=== PATIENT | female | born 1975 | race Caucasian/White ===

== ENCOUNTER 2016-10-04 22:15 | Observation (INO) | payer OTHER ==
[~2016-10-04] VITALS: Ht 157.5 cm; Wt 55.0 kg
[~2016-10-04 22:15] MED LIST: ASPI81TA11 PO; FERR325T PO; LEVO50TA4 PO; NITR50VP; REST30CA PO; XANA1TAB2 PO
[2016-10-04 22:19] VITALS: BP 106/63; PULSE 93; RESP 16; TEMP 98.7; O2SAT 96
[2016-10-04] MEDS ORDERED: ZOFR4TAB PO (22:38)
[2016-10-05] MEDS ORDERED: ONDANSETRON HCL 4 MG/2 ML VIAL IV PUSH ONE
[2016-10-05 00:13] LABS: AUTOMATED NEUTROPHIL # 5.4 TH/MM3 (1.8-7.7); BASOPHIL % 0.6 % (0.0-2.0); EOSINOPHIL # 0.1 TH/MM3 (0-0.4); EOSINOPHIL % 1.3 % (0.0-4.0); HEMATOCRIT 30.1 % (35.0-46.0); HEMO FLAGS DIFF FINAL; LYMPH % 21.2 % (9.0-44.0); LYMPHOCYTE # 1.7 TH/MM3 (1.0-4.8); MEAN CELL VOLUME 82.5 FL (80.0-100.0); MEAN CORPUSCULAR HEMOGLOBIN 28.8 PG (27.0-34.0); MEAN CORPUSCULAR HGB CONC 34.8 % (32.0-36.0); MONO % 10.7 % (0.0-8.0); NEUT % 66.2 % (16.0-70.0); PLATELET COUNT 334 TH/MM3 (150-450); RED BLOOD COUNT 3.65 MIL/MM3 (4.00-5.30); RED CELL DISTRIBUTION WIDTH 16.6 % (11.6-17.2); WHITE BLOOD COUNT 8.1 TH/MM3 (4.0-11.0)
[2016-10-05 00:18] LABS: APTT (PATIENT) 33.1 SEC (24.3-30.1); PROTHROMBIN TIME - PATIENT 10.7 SEC (9.8-11.6)
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
[2016-10-05 00:26] LABS: ALT (GPT) 17 U/L (10-53); ANION GAP 8 MEQ/L (5-15); AST (GOT) 9 U/L (15-37); BLOOD UREA NITROGEN 15 MG/DL (7-18); CHLORIDE 104 MEQ/L (98-107); GLOMERULAR FILTRATION RATE 111 ML/MIN (>89); POTASSIUM 3.9 MEQ/L (3.5-5.1); SODIUM (NA) 142 MEQ/L (136-145)
--- NOTE | 2016-10-05 00:29 | RADRPT ---
EXAM DATE/TIME: 10/05/2016 00:08 [facility] COMPARISON: CHEST SINGLE AP, April 11, 2016, 13:38. INDICATIONS : Chest pain. MEDICAL HISTORY : Lupus. Hypercholesterolemia. Gastroparesis. Osteoporosis. Thyroid disease. SURGICAL HISTORY : Port placement. ENCOUNTER: Initial ACUITY: 1 day PAIN SCORE: 7/10 LOCATION: Bilateral chest FINDINGS: A single view of the chest demonstrates the lungs to be symmetrically aerated without evidence of mas s, infiltrate or effusion. The cardiomediastinal contours are unremarkable. Osseous structures are intact. There is a left-sided Vovoda-g-Tqtj in place. No significant change compared to the prior tracie dy. CONCLUSION: No acute disease. No significant change has occurred. Daniel Roberts MD on October 05, 2016 at 0:27 Board Certified Radiologist. This report was verified electronically.
[2016-10-05 00:30] LABS: ALKALINE PHOSPHATASE 107 U/L (45-117); TOTAL BILIRUBIN ADULT 0.1 MG/DL (0.2-1.0)
[2016-10-05 00:34] LABS: CREATINE KINASE 28 U/L (26-192)
[2016-10-05] MEDS ORDERED: MORPHINE SULFATE 4 MG/ML INJ IV PUSH ONE ×2 (01:00)
[2016-10-05] MEDS ORDERED: IOHEXOL 350 MG/ML 10 ML VIAL (for RAD DIAG) IV ONE (01:57)
--- NOTE | 2016-10-05 02:06 | RADRPT ---
EXAM DATE/TIME: 10/05/2016 01:48 [facility] COMPARISON: CT PULMONARY ANGIOGRAM, September 12, 2014, 14:48. INDICATIONS : Right sided chest pain. IV CONTRAST: 60 cc Omnipaque 350 (iohexol) IV RADIATION DOSE: 22.73 CTDIvol (mGy) MEDICAL HISTORY : Cardiovascular disease. Lupus. SURGICAL HISTORY : Cholecystectomy. Appendectomy.Hysterectomy. ENCOUNTER: Initial ACUITY: 1 day PAIN SCALE: 9/10 LOCATION: Right chest TECHNIQUE: Volumetric scanning of the chest was performed using a pulmonary embolism protocol MIP images were re constructed. Using automated exposure control and adjustment of the mA and/or kV according to patien t size, radiation dose was kept as low as reasonably achievable to obtain optimal diagnostic quality images. FINDINGS: PULMONARY ARTERIES: No filling defects are seen in the pulmonary arteries through the segmental level. LUNGS: There is no consolidation or pneumothorax . No concerning pulmonary nodule is visualized. PLEURAE: There is no pleural thickening or pleural effusion. MEDIASTINUM: There is good visualization of the great vessels of the middle mediastinum. No evidence of mediastin al or hilar adenopathy/mass. MUSCULOSKELETAL: Within normal limits for patient age. MISCELLANEOUS: The visualized upper abdominal organs demonstrate no acute abnormality. There is an Mhndwn-s-Spbb ove rlying the left chest. No significant change compared to the prior study. CONCLUSION: 1. No evidence of PE. 2. No acute pulmonary infiltrates. 3. Stable examination. Daniel Roberts MD on October 05, 2016 at 2:02 Board Certified Radiologist. This report was verified electronically.
[2016-10-05] MEDS ORDERED: SODIUM CHLORIDE 0.9% FLUSH 5 ML FLUSH IVF PRN (03:15)
[2016-10-05] MEDS ORDERED: ACETAMINOPHEN 500 MG CPLT PO PRN (03:15)
--- NOTE | 2016-10-05 03:16 | PD ---
Data Data Last Documented VS Vital Signs Date Time Temp Pulse Resp B/P Pulse Ox O2 Delivery O2 Flow Rate FiO2 10/04/16 22:19 98.7 93 16 106/63 96 Orders Complete Blood Count With Diff (10/04/16 23:44) Comprehensive Metabolic Panel (10/04/16 23:44) Creatine Kinase (Cpk) (10/04/16 23:44) Troponin I (10/04/16 23:44) B-Type Natriuretic Peptide (10/04/16 23:44) Prothrombin Time / Inr (Pt) (10/04/16 23:44) Act Partial Throm Time (Ptt) (10/04/16 23:44) D-Dimer (10/04/16 23:44) Chest, Single Ap (10/04/16 23:44) Iv Access Insert/Monitor (10/04/16 23:44) Ecg Monitoring (10/04/16 23:44) Oximetry (10/04/16 23:44) Morphine Inj (Morphine Inj) (10/05/16 00:00) Ondansetron Inj (Zofran Inj) (10/05/16 00:00) Ct Pulmonary Angiogram (10/05/16 ) Morphine Inj (Morphine Inj) (10/05/16 01:00) Iohexol 350 Inj (Omnipaque 350 Inj) (10/05/16 01:57) Place In Observation (10/05/16 03:11) Activity Bed Rest With Brp (10/05/16 03:11) Vital Signs (Adult) Q4H (10/05/16 03:11) Cardiac Rhythm .As Directed (10/05/16 03:11) ^ Notify Dr: Other .PRN (10/05/16 03:11) ^ Notify Dr. Parameters (10/05/16 03:11) Resp Oxygen Nasal Cannula (10/05/16 ) Ckmb (Isoenzyme) Profile (10/05/16 03:11) Ckmb (Isoenzyme) Profile (10/05/16 06:11) Troponin I (10/05/16 03:11) Troponin I (10/05/16 06:11) Electrocardiogram (10/05/16 03:11) Electrocardiogram (10/05/16 06:11) ^ Obtain (10/05/16 03:11) Sodium Chloride 0.9% Flush (Ns Flush) (10/05/16 03:15) Sodium Chloride 0.9% Flush (Ns Flush) (10/05/16 09:00) Acetaminophen (Tylenol) (10/05/16 03:15) Senior Infrastructure Architect / Telemetry (10/05/16 03:11) Admit Order (Ed Use Only) (10/05/16 03:11) Labs Laboratory Tests Test 10/04/16 22:35 White Blood Count 8.1 TH/MM3 Red Blood Count 3.65 MIL/MM3 Hemoglobin 10.5 GM/DL Hematocrit 30.1 % Mean Corpuscular Volume 82.5 FL Mean Corpuscular Hemoglobin 28.8 PG Mean Corpuscular Hemoglobin 34.8 % Concent Red Cell Distribution Width 16.6 % Platelet Count 334 TH/MM3 Mean Platelet Volume 7.5 FL Neutrophils (%) (Auto) 66.2 % Lymphocytes (%) (Auto) 21.2 % Monocytes (%) (Auto) 10.7 % Eosinophils (%) (Auto) 1.3 % Basophils (%) (Auto) 0.6 % Neutrophils # (Auto) 5.4 TH/MM3 Lymphocytes # (Auto) 1.7 TH/MM3 Monocytes # (Auto) 0.9 TH/MM3 Eosinophils # (Auto) 0.1 TH/MM3 Basophils # (Auto) 0.0 TH/MM3 CBC Comment DIFF FINAL Differential Comment Prothrombin Time 10.7 SEC Prothromb Time International 1.0 RATIO Ratio Activated Partial 33.1 SEC Thromboplast Time D-Dimer Quantitative (PE/DVT) 0.76 MG/L FEU Sodium Level 142 MEQ/L Potassium Level 3.9 MEQ/L Chloride Level 104 MEQ/L Carbon Dioxide Level 30.0 MEQ/L Anion Gap 8 MEQ/L Blood Urea Nitrogen 15 MG/DL Creatinine 0.60 MG/DL Estimat Glomerular Filtration 111 ML/MIN Rate Random Glucose 97 MG/DL Calcium Level 9.1 MG/DL Total Bilirubin 0.1 MG/DL Aspartate Amino Transf 9 U/L (AST/SGOT) Alanine Aminotransferase 17 U/L (ALT/SGPT) Alkaline Phosphatase 107 U/L Total Creatine Kinase 28 U/L Troponin I LESS THAN 0.02 NG/ML B-Type Natriuretic Peptide LESS THAN 2 PG/ML Total Protein 7.0 GM/DL Albumin 3.1 GM/DL [facility] Medical Record Reviewed: Yes Supervised Visit with JESSICA: No Interpretation(s) Last Impressions CT Angiography 10/05/16 0000 Signed Impressions: Service Date/Time: Wednesday, October 05, 2016 01:48 - CONCLUSION: 1. No evidence of PE. 2. No acute pulmonary infiltrates. 3. Stable examination. Daniel Roberts MD Chest X-Ray 10/04/16 2344 Signed Impressions: Service Date/Time: Wednesday, October 05, 2016 00:08 - CONCLUSION: No acute disease. No significant change has occurred. Daniel Roberts MD Narrative Course The patient's case was checked out to me by Dr. Gomes. He reported that the patient was experiencing chest pain. The patient's initial workup was unremarkable except for a d-dimer that was elevated. He ordered a CTA. At the conclusion of his shift the CTA continued be pending. Because of this, he requested that I review the patient's CTA results and if it was negative for PE admit the patient to the chest pain center for rule out serial cardiac enzyme protocol. CTA was resulted as showing no evidence of pulmonary embolism. The patients results were discussed with the patient, including the plan of care. I explained that further testing and/ or monitoring is indicated based on the patients history, examination, and/ or laboratory findings. Therefore, I recommended admission for additional evaluation. The patient expressed understanding and was agreeable with this plan. The patient was admitted to the hospital in stable condition and sent to a bed under the care of the chest pain center. Diagnosis Primary Impression: Chest pain, rule out acute myocardial infarction Admitting Information Admitting Physician Requests: Observation Winsome Ramirez MD Oct 05, 2016 03:16
[2016-10-05 06:20] LABS: CREATINE KINASE 22 U/L (26-192)
[2016-10-05 08:30] VITALS: BP 112/72; PULSE 79; RESP 16; O2SAT 99
[2016-10-05] MEDS ORDERED: SODIUM CHLORIDE 0.9% FLUSH 5 ML FLUSH IVF SCH (09:00)
--- NOTE | 2016-10-05 10:42 | EKG ---
Date Performed: 10/05/2016 Time Performed: 04:34:58 PTAGE: 41 years EKG: Sinus rhythm Nonspecific ST changes Since PREVIOUS TRACING , no significant change noted PREVIOUS TRACIN08/23/2016 11.09 DOCTOR: Nya Salgado Interpretating Date/Time 10/05/2016 10:41:30
[2016-10-05] MEDS ORDERED: KETOROLAC TROMETHAMINE 30 MG/ML (IVP) VIAL IV PUSH ONE (10:45)
--- NOTE | 2016-10-05 10:45 | EKG ---
Date Performed: 10/04/2016 Time Performed: 22:43:56 PTAGE: 41 years EKG: Sinus rhythm WITH SINUS ARRHYTHMIA NORMAL ECG Since PREVIOUS TRACING , no significant change noted DOCTOR: Nya Salgado Interpretating Date/Time 10/05/2016 10:44:18
--- NOTE | 2016-10-05 13:12 | HHI.DCPOC ---
Discharge Care Plan Diagnosis: (1) Atypical chest pain Goals to Promote Your Health * To prevent worsening of your condition and complications * To maintain your health at the optimal level Directions to Meet Your Goals Take your medications as prescribed Follow your dietary instruction Follow activity as directed Keep your appointments as scheduled Take your immunizations and boosters as scheduled If your symptoms worsen call your PCP, if no PCP go to Urgent Care Center or Emergency Room Smoking is Dangerous to Your Health. Avoid second hand smoke Call the 24-hour hour crisis hotline for domestic abuse at Ángela Tatum Oct 05, 2016 13:12
--- NOTE | 2016-10-05 16:15 | MH ---
cc: MATEHW NEAL MD DATE OF ADMISSION: 10/05/2016 DATE OF : 1975 CHIEF COMPLAINT Chest pain. HISTORY OF PRESENT ILLNESS This is a 41-year-old patient who presented to the emergency room for right-sided chest pain. The patient is currently at [facility] for a recent stroke she had in August. States she was walking to the vending machine when she developed right-sided chest pain that was described as sharp stabbing pain that radiated to her right shoulder, her right neck and to her right back. Duration was a couple of hours. No known associated precipitating factors or relieving factors. She had some mild shortness of breath. PAST MEDICAL HISTORY 1. CVA. 2. Lupus. 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 4. Anxiety. 5. Migraines. 6. Dyslipidemia. 7. Gastroparesis with a gastric pacemaker. SOCIAL HISTORY She currently is residing at [facility]. She has left-sided weakness from a stroke she had 08/27, and at that time she received TPA. She denies any alcohol, illegal drug use or tobacco use. Does have dyslipidemia. No known diabetes or hypertension. PAST CARDIAC TESTING After reviewing the EMR showing that she had a chemical stress test 11/06/2015 which was unremarkable and also on 04/05/2016 another chemical stress test was unremarkable with an ejection fraction of 67%. She had a cardiac catheterization on 02/25/[address] Humphreys with a conclusion: 1. Insignificant coronary artery disease. 2. Preserved left ventricular systolic wall motion. 3. The patient can be treated medically and her chest pain is not related to cardiac ischemia. ALLERGIES She has multiple allergies includin. ASPIRIN. 2. AUGMENTIN. 3. BACTRIM. 4. BARIUM SULFATE. 5. BENTYL. 6. CARAFATE. 7. CIPRO. 8. DIOXYLINE. 9. DARVOCET. 10. DOXYCYCLINE. 11. ERYTHROMYCIN. 12. IMITREX. 13. MRI PRECAUTIONS. 14. MILK OF MAGNESIA. 15. REGLAN. MEDICATIONS Current medications include: 1. Zofran 4 mg p.o. q.6h. p.r.n. 2. Xanax 1 mg p.o. q.8h. p.r.n. 3. Restoril 30 mg q.h.s. p.r.n. 4. Nitroglycerin sublingual tablet p.r.n. for chest pain. 5. Aspirin 81 mg daily. 6. Levothyroxine 50 mcg daily. REVIEW OF SYSTEMS GENERAL: She has not had any recent fevers, chills, night sweats, change in appetite. Does have left-sided weakness. She is receiving rehab at [facility]. HEENT: No headache or visual changes. Has some dysphagia. Takes crushed pills. However, denies being on aspiration precautions. CARDIOVASCULAR: As stated above. Continues to have some right-sided chest discomfort that radiates to her back. RESPIRATORY: No shortness of breath, cough or wheeze. GASTROINTESTINAL: No bowel changes, diarrhea, constipation, nausea or vomiting. GENITOURINARY: No dysuria. EXTREMITIES: No lower leg edema. MUSCULOSKELETAL: Has some left-sided weakness from her stroke, states this is improving. NEUROLOGIC: She is able to walk, uses a cane. Does have some sensory deficits on the left side and some weakness. No loss of consciousness or syncopal episodes. PSYCHIATRIC: No anxiety or depression. SKIN: No concerning lesions or rashes. PHYSICAL EXAMINATION VITAL SIGNS: Temperature 98.7, pulse 93, respiratory rate 16, blood pressure 106/63. Pulse oximetry 96% on room air. GENERAL: An alert, well-nourished, well-developed, in no acute distress female. HEAD: Normocephalic, atraumatic. EYES: Sclera clear. Conjunctiva without injection. Pupils are equal and round. NECK: Supple. Trachea is midline. CARDIOVASCULAR: Regular rate and rhythm without murmur, rub or gallop. No JVD. S1, S2. No S3. No S4. PULMONARY: Clear lungs throughout bilaterally with no crackles, wheeze or rhonchi. She is non-labored. Symmetrical chest rise. ABDOMEN: Soft, nontender, nondistended. Positive bowel tones. BACK: No costovertebral angle tenderness. EXTREMITIES: Pulses +2 x4. Normal tone x4. No obvious deformities. NEUROLOGIC: Cranial nerves II through XII grossly intact. Motor strength is slightly weak at 4/5 for left extremities. PSYCHIATRIC: She is alert and oriented x3, appropriate to mood, insight and judgment. SKIN: Normal turgor. Normal texture. Warm and dry. LABORATORY DATA Hemoglobin 10.5, hematocrit 30.1, otherwise unremarkable. Chemistry has an albumin of 3.1, otherwise unremarkable. Three sets of cardiac enzymes are negative. Coagulation is unremarkable. D-dimer is 0.78. IMAGING DATA Chest x-ray read by radiologist as no acute disease. No significant change has occurred. CT angiogram has conclusion of: 1. No evidence of a PE. 2. No acute pulmonary infiltrates. 3. Stable examination. EKG DATA Three EKGs show a normal sinus rhythm. The second EKG showed normal sinus rhythm with nonspecific ST changes. ASSESSMENT AND PLAN 1. Chest pain: The patient has been admitted to the chest pain center. She was ruled out with three sets of EKGs and cardiac enzymes. She was seen and evaluated by Dr. Mathew Neal. The patient's vending machine attendant, Dr. Wing Humphreys, was called and notified of the patient's arrival to the emergency room with complaint of chest pain. The patient's vending machine attendant states it is appropriate to discharge her at this time and the patient can follow-up in her office as she has been thoroughly worked up in the past and it is not suspected that she has coronary artery disease. This has been discussed with the patient and she is agreeable to this plan of care. She will be discharged back to [facility]. 2. Musculoskeletal pain: The patient very well may have musculoskeletal pain, and dose of Toradol 30 mg x1 was provided. 3. Anemia. The patient is and been encouraged to continue to follow up her primary care provider for her known iron deficiency anemia. Dictated by: CAMILO Tyler Marie Downs/TR /1:55 PM /4:11 PM
--- NOTE | 2016-10-06 14:27 | EKG ---
Date Performed: 10/05/2016 Time Performed: 10:52:28 PTAGE: 41 years EKG: Sinus rhythm WITH SINUS ARRHYTHMIA NORMAL ECG PREVIOUS TRACING : 10/05/2016 04.34 Since previous tracing, no significant change noted DOCTOR: Fernie Reed Interpretating Date/Time 10/06/2016 14:26:41
== END 2016-10-05 16:31 | disposition home or self-care (01) ==
LOC: NEPA 22:15 → NEDA 10-05 03:14
PROVIDERS: ADMIT Internal Medicine Interventional Cardiology; ATTEND Internal Medicine Interventional Cardiology
DX: R07.89 Other chest pain (principal); D50.9 Iron deficiency anemia, unspecified; E78.5 Hyperlipidemia, unspecified; E03.9 Hypothyroidism, unspecified; E78.00 Pure hypercholesterolemia, unspecified; I69.354 Hemiplegia and hemiparesis following cerebral infarction affecting left non-dominant side; K31.84 Gastroparesis; M79.7 Fibromyalgia; G61.0 Guillain-Barre syndrome; G43.909 Migraine, unspecified, not intractable, without status migrainosus; M32.9 Systemic lupus erythematosus, unspecified; M19.90 Unspecified osteoarthritis, unspecified site
CPT/HCPCS: 71010; 71275; 80053; 82550; 83880; 84484; 85025; 85379; 85610; 85730; 93005; 96374; 96375; 96376; 99285; G0378; J1885; J2270; J2405; Q9967

== ENCOUNTER 2017-01-18 13:48 | Observation (INO) | payer OTHER ==
[~2017-01-18] VITALS: Ht 160 cm; Wt 53.0 kg
[~2017-01-18 13:48] MED LIST changes: -FERR325T PO; +ZOFR4TAB PO
[2017-01-18 13:50] VITALS: BP 124/76; PULSE 67; RESP 14; TEMP 98.1; O2SAT 100
[2017-01-18] MEDS ORDERED: SODIUM CHLORIDE 0.9% FLUSH 10 ML FLUSH IVF PRN (14:15)
[2017-01-18] MEDS ORDERED: SODIUM CHLOR 0.9% 1000 ML INJ 1,000 ML IV ONE (14:15)
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
[2017-01-18 14:58] LABS: BLOOD, URINE NEG (NEG); GLUCOSE,URINE NEG (NEG); KETONE, URINE NEG (NEG); NITRITE,URINE NEG (NEG); PH, URINE 5.5 (5.0-8.5); URINE COLOR YELLOW (YELLW/STRAW)
[2017-01-18 15:03] LABS: AMPHETAMINE, URINE NEG (NEG); AUTOMATED NEUTROPHIL # 2.4 TH/MM3 (1.8-7.7); BARBITURATES, URINE NEG (NEG); BASOPHIL % 1.2 % (0.0-2.0); COCAINE, URINE NEG (NEG); EOSINOPHIL # 0.1 TH/MM3 (0-0.4); EOSINOPHIL % 1.6 % (0.0-4.0); HEMATOCRIT 34.1 % (35.0-46.0); HEMO FLAGS DIFF FINAL; LYMPH % 31.3 % (9.0-44.0); LYMPHOCYTE # 1.3 TH/MM3 (1.0-4.8); MEAN CORPUSCULAR HEMOGLOBIN 29.1 PG (27.0-34.0); MEAN CORPUSCULAR HGB CONC 33.9 % (32.0-36.0); NEUT % 57.9 % (16.0-70.0); PLATELET COUNT 228 TH/MM3 (150-450); RED BLOOD COUNT 3.96 MIL/MM3 (4.00-5.30); RED CELL DISTRIBUTION WIDTH 14.6 % (11.6-17.2); WHITE BLOOD COUNT 4.2 TH/MM3 (4.0-11.0)
[2017-01-18 15:04] LABS: APTT (PATIENT) 29.9 SEC (24.3-30.1); PROTHROMBIN TIME - PATIENT 10.7 SEC (9.8-11.6)
[2017-01-18 15:11] LABS: COMMENT (UR) CATH-CULT NOT IND; CULTURE IF INDICATED CATH CULTURE NOT IND
[2017-01-18 15:15] LABS: ANION GAP 5 MEQ/L (5-15); AST (GOT) 14 U/L (15-37); BICARBONATE 28.5 MEQ/L (21.0-32.0); BLOOD UREA NITROGEN 7 MG/DL (7-18); CHLORIDE 110 MEQ/L (98-107); GLOMERULAR FILTRATION RATE 144 ML/MIN (>89); POTASSIUM 3.9 MEQ/L (3.5-5.1); SODIUM (NA) 143 MEQ/L (136-145)
[2017-01-18 15:20] LABS: ALKALINE PHOSPHATASE 74 U/L (45-117); ALT (GPT) 16 U/L (10-53); TOTAL BILIRUBIN ADULT 0.2 MG/DL (0.2-1.0)
[2017-01-18 15:28] LABS: CREATINE KINASE 45 U/L (26-192)
[2017-01-18 15:52] VITALS: BP 123/85; PULSE 64; RESP 20; O2SAT 100
--- NOTE | 2017-01-18 15:54 | RADRPT ---
EXAM DATE/TIME: 01/18/2017 15:39 [facility] COMPARISON: CT BRAIN W/O CONTRAST, August 24, 2016, 11:58. INDICATIONS : Head and neck pain, tingling extremities, prior history of stroke RADIATION DOSE: 30.69 CTDIvol (mGy) MEDICAL HISTORY : Cardiovascular disease. SURGICAL HISTORY : Hysterectomy. Appendectomy. ENCOUNTER: Initial ACUITY: 1 day PAIN SCALE: 3/10 LOCATION: cranial TECHNIQUE: Multiple contiguous axial images were obtained of the head. Using automated exposure control and adj ustment of the mA and/or kV according to patient size, radiation dose was kept as low as reasonably a chievable to obtain optimal diagnostic quality images. FINDINGS: CEREBRUM: The ventricles are normal for age. No evidence of midline shift, mass lesion, hemorrhage or acute in farction. No extra-axial fluid collections are seen. POSTERIOR FOSSA: The cerebellum and brainstem are intact. The 4th ventricle is midline. The cerebellopontine angle i s unremarkable. EXTRACRANIAL: The visualized portion of the orbits is intact. SKULL: The calvaria is intact. No evidence of skull fracture. CONCLUSION: No acute intracranial disease. Shravan Pedro MD on January 18, 2017 at 15:52 Board Certified Radiologist. This report was verified electronically.
--- NOTE | 2017-01-18 16:14 | RADRPT ---
EXAM DATE/TIME: 01/18/2017 15:39 [facility] COMPARISON: No previous studies available for comparison. INDICATIONS : Neck pain with tingling extremities RADIATION DOSE: 19.20 CTDIvol (mGy) MEDICAL HISTORY : Lupus. Cardiovascular disease SURGICAL HISTORY : Appendectomy. Hysterectomy.Pacemaker. ENCOUNTER: Initial ACUITY: 1 day PAIN SCALE: 4/10 LOCATION: neck TECHNIQUE: Volumetric scanning of the cervical spine was performed. Multiplanar reconstructions in the sagittal, coronal and oblique axial planes were performed. Using automated exposure control and adjustment o f the mA and/or kV according to patient size, radiation dose was kept as low as reasonably achievable to obtain optimal diagnostic quality images. FINDINGS: VERTEBRAE: Normal vertebral body height. ALIGNMENT: No evidence of subluxation. C2-C3: The bony spinal canal is normal in size. No evidence of disc bulge or herniation. The neural forami na are bilaterally patent. C3-C4: The bony spinal canal is normal in size. No evidence of disc bulge or herniation. The neural forami na are bilaterally patent. C4-C5: The bony spinal canal is normal in size. No evidence of disc bulge or herniation. The neural forami na are bilaterally patent. C5-C6: The bony spinal canal is normal in size. No evidence of disc bulge or herniation. The neural forami na are bilaterally patent. C6-C7: The bony spinal canal is normal in size. No evidence of disc bulge or herniation. The neural forami na are bilaterally patent. C7-T1: The bony spinal canal is normal in size. No evidence of disc bulge or herniation. The neural forami na are bilaterally patent. CONCLUSION: 1. No fracture or subluxation. 2. No disc herniation or canal stenosis. Shravan Pedro MD on January 18, 2017 at 16:11 Board Certified Radiologist. This report was verified electronically.
--- NOTE | 2017-01-18 16:50 | RADRPT ---
EXAM DATE/TIME: 01/18/2017 14:18 [facility] COMPARISON: CHEST SINGLE AP, October 05, 2016, 0:08. INDICATIONS : Weaknes and dizzy today, numbness possible CVA. MEDICAL HISTORY : Stroke. Lupus. Fibromyalgia. SURGICAL HISTORY : Appendectomy. Cholecystectomy. Hysterectomy. Infusaport. Cardiac cath. Gastric pacemaker. ENCOUNTER: Initial ACUITY: 1 day PAIN SCORE: 0/10 LOCATION: Bilateral chest FINDINGS: A single view of the chest demonstrates the lungs to be symmetrically aerated without evidence of mas s, infiltrate or effusion. The cardiomediastinal contours are unremarkable. Osseous structures are intact. Left-sided [id number] catheter are again noted. CONCLUSION: No acute disease. No significant change has occurred. Jaime Donahue MD on January 18, 2017 at 16:47 Board Certified Radiologist. This report was verified electronically.
--- NOTE | 2017-01-18 17:59 | HHI.HP ---
HPI Service [facility] Primary Care Physician Carlo Betancourt MD Admission Diagnosis Neurological disorder Diagnoses: Chief Complaint: Headache, neck pain, numbness and tingling in bilateral lower extremites Travel History International Travel<30 Days: No Contact w/Intl Traveler <30 Da: No Traveled to Known Affected Are: No History of Present Illness Ms. 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 Patient states that these symptoms began around 11:30 this morning and eventually led to the inability to move lower extremities and eventually resolved to the point of the patient being able to walk again. Patient denies any recent upper respiratory infection, fever, chills or cough, any recent diarrhea, or recent travel. She does state that she underwent an EGD with dilation yesterday with Dr. Zavala, given conscious sedation. She states that she has underwent this treatment several times in the past with no negative side effects. At this time, patient is seen and examined in ED. Patient speech is clear. Follows all commands appropriately. Gross and fine motor intact, with no deficits noted. Patient strength equal bilaterally in upper and lower extremities. Cranial nerves all intact. Patient states numbness is still present in lower extremities but has improved since presentation. Review of Systems Neurologic: COMPLAINS OF: Localized weakness, Paresthesias, Poor Balance Psychiatric: COMPLAINS OF: Anxiety Except as stated in HPI: all other systems reviewed are Neg Past Family Social History Past Medical History Arthritis Lupus Anxiety Dyslipidemia Fibromyalgia Gastroparesis Headaches Past Surgical History Appendectomy Cholecystectomy Hysterectomy Gastric pacemaker Cataract removal with bilateral lens Bilateral hip replacement Reported Medications Reported Meds & Active Scripts Active Aspirin EC (Aspirin) 81 Mg Tabdr 81 Mg PO DAILY Xanax (Alprazolam) 1 Mg Tab 1 Mg PO Q8H PRN Reported Zofran (Ondansetron HCl) 4 Mg Tab 4 Mg PO Q6HR PRN Nitroglycerin 5 Mg/Ml Inj Restoril (Temazepam) 30 Mg Cap 30 Mg PO HS PRN Levothyroxine (Levothyroxine Sodium) 50 Mcg Tab 50 Mcg PO DAILY Allergies: Coded Allergies: Augmentin (Verified Allergy, Severe, Nausea/Vomiting, 01/18/17) Bactrim (Verified Allergy, Severe, Rash, 01/18/17) Bentyl (Verified Allergy, Severe, Restlessness, 01/18/17) Ciprofloxacin (Verified Allergy, Severe, 01/18/17) Carafate (Verified Allergy, Intermediate, VOMITING, 01/18/17) Doxycycline (Verified Allergy, Intermediate, VOMITING, 01/18/17) Erythromycin (Verified Allergy, Intermediate, VOMITING, 01/18/17) Imitrex (Verified Allergy, Intermediate, VOMITING, 01/18/17) Reglan (Verified Allergy, Intermediate, BLURRED VISION, 01/18/17) Darvocet-N 100 (Verified Allergy, Mild, RASH, LOOPY, 01/18/17) MRI PRECAUTION (Verified Adverse Reaction, Severe, [employer] GASTRIC PACEMAKER ,RECOMMENDED BY [employer] NOT TO, 01/18/17) SCAN PATIENT SH/VV 04-07-2016 Milk Of Magnesia (Verified Adverse Reaction, Intermediate, Nausea/Vomiting , 01/18/17) Aspirin (Verified Adverse Reaction, Mild, VOMITING, 01/18/17) denies allergy, received with ems 08/23/16 Barium Sulfate (Verified Adverse Reaction, Mild, Nausea, 01/18/17) Active Ordered Medications Current Medications Medications (Trade) Dose Ordered Sig/Sara Route Start Time Stop Time Status Last Admin (NS Flush) 2 ml UNSCH PRN IVF 01/18/17 14:15 Family History Paternal medical history includes cardiovascular disease. Maternal medical history significant for rheumatoid arthritis and cardiovascular disease. Social History Patient denies tobacco use or alcohol use/abuse. Denies any illicit drug use, including marijuana. Physical Exam Vital Signs Vital Signs Date Time Temp Pulse Resp B/P Pulse Ox O2 Delivery O2 Flow Rate FiO2 01/18/17 15:52 64 20 123/85 100 Room Air 01/18/17 13:50 98.1 67 14 124/76 100 Physical Exam GENERAL: Well-nourished, well-developed patient, in no apparent distress. SKIN: No rashes, ecchymoses or lesions. Warm and dry. HEENT: Atraumatic. Normocephalic. No temporal or scalp tenderness. Pupils equal round and reactive. Extraocular motions intact. No scleral icterus. No injection or drainage. Nose without bleeding, purulent drainage or septal hematoma. Throat without erythema, tonsillar hypertrophy or exudate. Uvula midline. Airway patent. NECK: Trachea midline. No JVD or lymphadenopathy. Supple, nontender, no meningeal signs. CARDIOVASCULAR: Regular rate and rhythm without murmurs, gallops, or rubs. RESPIRATORY: Clear to auscultation. Breath sounds equal bilaterally. No wheezes , rales, or rhonchi. GASTROINTESTINAL: Abdomen soft, non-tender, nondistended. No guarding. MUSCULOSKELETAL: Extremities without clubbing, cyanosis, or edema. No joint tenderness, effusion, or edema noted. No calf tenderness. Negative Homans sign bilaterally. NEUROLOGICAL: Awake and alert. Cranial nerves II through XII intact. Motor and sensory grossly within normal limits. Five out of 5 muscle strength in all muscle groups. Normal speech. Laboratory Laboratory Tests Test 01/18/17 14:25 White Blood Count 4.2 Red Blood Count 3.96 Hemoglobin 11.5 Hematocrit 34.1 Mean Corpuscular Volume 86.0 Mean Corpuscular Hemoglobin 29.1 Mean Corpuscular Hemoglobin 33.9 Concent Red Cell Distribution Width 14.6 Platelet Count 228 Mean Platelet Volume 8.2 Neutrophils (%) (Auto) 57.9 Lymphocytes (%) (Auto) 31.3 Monocytes (%) (Auto) 8.0 Eosinophils (%) (Auto) 1.6 Basophils (%) (Auto) 1.2 Neutrophils # (Auto) 2.4 Lymphocytes # (Auto) 1.3 Monocytes # (Auto) 0.3 Eosinophils # (Auto) 0.1 Basophils # (Auto) 0.0 CBC Comment DIFF FINAL Differential Comment Prothrombin Time 10.7 Prothromb Time International 1.0 Ratio Activated Partial 29.9 Thromboplast Time Urine Color YELLOW Urine Turbidity CLEAR Urine pH 5.5 Urine Specific [place] 1.012 Urine Protein NEG Urine Glucose (UA) NEG Urine Ketones NEG Urine Occult Blood NEG Urine Nitrite NEG Urine Bilirubin NEG Urine Urobilinogen LESS THAN 2.0 Urine Leukocyte Esterase NEG Urine WBC 1 Microscopic Urinalysis Comment CATH-CULT NOT IND Sodium Level 143 Potassium Level 3.9 Chloride Level 110 Carbon Dioxide Level 28.5 Anion Gap 5 Blood Urea Nitrogen 7 Creatinine 0.48 Estimat Glomerular Filtration 144 Rate Random Glucose 90 Calcium Level 8.9 Total Bilirubin 0.2 Aspartate Amino Transf 14 (AST/SGOT) Alanine Aminotransferase 16 (ALT/SGPT) Alkaline Phosphatase 74 Total Creatine Kinase 45 Troponin I LESS THAN 0.02 Total Protein 7.0 Albumin 3.4 Thyroid Stimulating Hormone 1.750 3rd Gen Urine Opiates Screen NEG Urine Barbiturates Screen NEG Urine Amphetamines Screen NEG Urine Benzodiazepines Screen POS Urine Cocaine Screen NEG Urine Cannabinoids Screen NEG Result Diagram: 01/18/17 1425 01/18/17 1425 Imaging Last Impressions Head CT 01/18/17 1412 Signed Impressions: Service Date/Time: Wednesday, January 18, 2017 15:39 - CONCLUSION: No acute intracranial disease. Shravan Pedro MD Chest X-Ray 01/18/17 1412 Signed Impressions: Service Date/Time: Wednesday, January 18, 2017 14:18 - CONCLUSION: No acute disease. No significant change has occurred. Jaime Donahue MD Cervical Spine CT 01/18/17 0000 Signed Impressions: Service Date/Time: Wednesday, January 18, 2017 15:39 - CONCLUSION: 1. No fracture or subluxation. 2. No disc herniation or canal stenosis. Shravan Pedro MD Assessment and Plan Problem List: (1) Paresthesia ICD Code: R20.2 Status: Acute Assessment and Plan Ms. 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 Guillain-Shirley and Lupus history, rule out any exacerbations Possible CVA versus TIA, very unlikely - Head CT reviewed by me, no acute intracranial disease - Cervical spine CT reviewed by me, no fracture or subluxation. No disc herniation or canal stenosis. - Check lipid panel. - continue aspirin 81 mg PO daily. - consult neurology, appreciate input - Patient has presence of gastric pacemaker, unable to perform MRI. CT thoracic and lumbar spine ordered and pending. Await results. Hypothyroidism - Restart levothyroxine - TSH WNL, 1.750 DVT prophylaxis: SCDs. Written by Lay Novak, acting as scribe for Dr. Jane on 01/18/17 at 17:56. This note was transcribed by scribe []. I, Dr. Shravan Jane personally performed the history, physical exam, and medical decision making; and confirmed the accuracy of the information in the transcribed note. Authenticated by Dr. Shravan Jane on 01/18/17 at 17:56. Code Status Full code Discussed Condition With Patient, grandparents, ED physician Lay Novak January 18, 2017 17:58 Shravan Jane MD January 18, 2017 21:00
[2017-01-18] MEDS ORDERED: MAGNESIUM HYDROXIDE SUSP 30 ML CUP PO PRN ×2 (18:00→21:15)
[2017-01-18] MEDS ORDERED: SODIUM CHLORIDE 0.9% FLUSH 10 ML FLUSH IV FLUSH PRN (18:00)
[2017-01-18] MEDS ORDERED: NALOXONE HCL 0.4 MG/ML AMP IV PRN (18:00)
[2017-01-18] MEDS ORDERED: ONDANSETRON HCL 4 MG/2 ML VIAL IVP PRN (18:00)
--- NOTE | 2017-01-18 18:24 | RADRPT ---
EXAM DATE/TIME: 01/18/2017 17:50 [facility] COMPARISON: No previous studies available for comparison. INDICATIONS : Back pain and tingling in extremities RADIATION DOSE: 32.78 CTDIvol (mGy) ; Combined studies - Thoracic Spine/Lumbar Spine MEDICAL HISTORY : Cardiovascular disease. lupus SURGICAL HISTORY : Appendectomy. Cholecystectomy.Hysterectomy.Gi stimulator ENCOUNTER: Initial ACUITY: 1 day PAIN SCALE: 8/10 LOCATION: back TECHNIQUE: Volumetric scanning of the thoracic spine was performed. Multiplanar reconstructions in the sagittal , coronal and oblique axial planes were performed. Using automated exposure control and adjustment o f the mA and/or kV according to patient size, radiation dose was kept as low as reasonably achievable to obtain optimal diagnostic quality images. FINDINGS: Thoracic spinal alignment is satisfactory. There is no evidence of fracture. No bony canal or foramin al stenosis is noted. There is no evidence of paraspinal hematoma. CONCLUSION: No evidence of acute bony process in the thoracic spine. Carlo Saldaña MD on January 18, 2017 at 18:20 Board Certified Radiologist. This report was verified electronically.
--- NOTE | 2017-01-18 18:25 | RADRPT ---
EXAM DATE/TIME: 01/18/2017 17:50 [facility] COMPARISON: No previous studies available for comparison. INDICATIONS : Back pain and extremity tingling. RADIATION DOSE: 32.77 CTDIvol (mGy) ; Combined studies - Thoracic Spine/Lumbar Spine MEDICAL HISTORY : Cardiovascular disease. lupus SURGICAL HISTORY : Appendectomy. Cholecystectomy.Hysterectomy.gi stimulator ENCOUNTER: Initial ACUITY: 1 day PAIN SCALE: 8/10 LOCATION: back TECHNIQUE: Volumetric scanning of the lumbar spine was performed. Multiplanar reconstructions in the sagittal, coronal and oblique axial planes were performed. Using automated exposure control and adjustment of the mA and/or kV according to patient size, radiation dose was kept as low as reasonably achievable t o obtain optimal diagnostic quality images. FINDINGS: Lumbar spine alignment is satisfactory. There is no evidence of fracture. No bony canal or foraminal stenosis is identified. There is no evidence of paraspinal hematoma.Incidental note is made of a tiny hemorrhagic cyst in the lower pole cortex of the right kidney. CONCLUSION: No evidence of acute bony injury in the lumbosacral spine Carlo Saldaña MD on January 18, 2017 at 18:22 Board Certified Radiologist. This report was verified electronically.
[2017-01-18 19:34] VITALS: BP 107/80; PULSE 67; RESP 18; O2SAT 96
[2017-01-18 20:05] LABS: HDL CHOLESTEROL 50.6 MG/DL (40.0-60.0)
[2017-01-18 20:59] VITALS: BP 100/65; PULSE 68; RESP 18; TEMP 98.4; O2SAT 98
[2017-01-18] MEDS ORDERED: TEMAZEPAM 15 MG CAP PO PRN (21:15)
[2017-01-18] MEDS ORDERED: ONDANSETRON HCL 4 MG/2 ML VIAL IV PRN (21:15)
[2017-01-18] MEDS ORDERED: CALCIUM CARBONATE 500 MG CHEWABLE TAB CHEW PRN (21:15)
[2017-01-18] MEDS: SODIUM CHLORIDE 0.9% FLUSH 10 ML FLUSH IV FLUSH SCH (21:56)
[2017-01-18] MEDS: ACETAMINOPHEN 500 MG CPLT PO PRN (23:47)
[2017-01-18] MEDS: ALPRAZolam 1 MG TAB PO PRN (23:48)
[2017-01-19 00:10] VITALS: BP 97/63; PULSE 59; RESP 18; TEMP 96; O2SAT 96
[2017-01-19 04:39] VITALS: BP 89/63; PULSE 58; RESP 18; TEMP 96.6; O2SAT 95
[2017-01-19] MEDS ORDERED: IBUPROFEN 200 MG TAB PO ONE (05:00)
[2017-01-19 05:06] LABS: ALKALINE PHOSPHATASE 65 U/L (45-117); ALT (GPT) 13 U/L (10-53); ANION GAP 10 MEQ/L (5-15); AST (GOT) 14 U/L (15-37); BICARBONATE 28.1 MEQ/L (21.0-32.0); BLOOD UREA NITROGEN 11 MG/DL (7-18); CHLORIDE 107 MEQ/L (98-107); GLOMERULAR FILTRATION RATE 168 ML/MIN (>89); POTASSIUM 3.6 MEQ/L (3.5-5.1); SODIUM (NA) 145 MEQ/L (136-145); TOTAL BILIRUBIN ADULT 0.1 MG/DL (0.2-1.0)
--- NOTE | 2017-01-19 05:59 | EKG ---
Date Performed: 01/18/2017 Time Performed: 14:36:27 PTAGE: 41 years EKG: Sinus rhythm INDETERMINATE AXIS ABNORMAL RHYTHM ECG PREVIOUS TRACING : 10/05/2016 10.52 Compared to prior tracing no significant change DOCTOR: Minerva Frye Interpretating Date/Time 01/19/2017 05:57:47
[2017-01-19] MEDS ORDERED: LEVOTHYROXINE SODIUM 50 MCG TAB PO SCH (06:00)
[2017-01-19 07:38] VITALS: BP 107/56; PULSE 63; RESP 16; TEMP 97.8; O2SAT 97
--- NOTE | 2017-01-19 08:45 | HHI.PR ---
Subjective Remarks Follow up Paresthesia 01/19/17-Patient seen and examined; now only complains of weakness to BLEs and also complains of some left sided chest discomfort .Uneventful night and currently Afebrile Objective Vitals Vital Signs Date Time Temp Pulse Resp B/P Pulse Ox O2 Delivery O2 Flow Rate FiO2 01/19/17 07:38 97.8 63 16 107/56 97 01/19/17 04:39 96.6 58 18 89/63 95 01/19/17 00:50 20 01/19/17 00:10 96.0 59 18 97/63 96 01/18/17 20:59 98.4 68 18 100/65 98 01/18/17 19:34 67 18 107/80 96 Room Air 01/18/17 15:52 64 20 123/85 100 Room Air 01/18/17 13:50 98.1 67 14 124/76 100 I/O 01/18/17 01/18/17 01/18/17 01/19/17 01/19/17 01/19/17 07:00 15:00 23:00 07:00 15:00 23:00 Intake Total 350 ml Output Total 1 ml Balance 349 ml Intake Oral 350 ml Output Stool Total 1 ml # Voids 3 2 Result Diagram: 01/18/17 1425 01/19/17 0350 Imaging Last Impressions Head CT 01/18/17 1412 Signed Impressions: Service Date/Time: Wednesday, January 18, 2017 15:39 - CONCLUSION: No acute intracranial disease. Shravan Pedro MD Chest X-Ray 01/18/17 1412 Signed Impressions: Service Date/Time: Wednesday, January 18, 2017 14:18 - CONCLUSION: No acute disease. No significant change has occurred. Jaime Donahue MD Thoracic Spine CT 01/18/17 0000 Signed Impressions: Service Date/Time: Wednesday, January 18, 2017 17:50 - CONCLUSION: No evidence of acute bony process in the thoracic spine. Carlo Saldaña MD Lumbar Spine CT 01/18/17 0000 Signed Impressions: Service Date/Time: Wednesday, January 18, 2017 17:50 - CONCLUSION: No evidence of acute bony injury in the lumbosacral spine Carlo Saldaña MD Cervical Spine CT 01/18/17 0000 Signed Impressions: Service Date/Time: Wednesday, January 18, 2017 15:39 - CONCLUSION: 1. No fracture or subluxation. 2. No disc herniation or canal stenosis. Shravan Pedro MD Objective Remarks GENERAL: NAD SKIN: Warm and dry. HEAD: Normocephalic. EYES: No scleral icterus. No injection or drainage. NECK: Supple, trachea midline. No JVD or lymphadenopathy. CARDIOVASCULAR: Regular rate and rhythm without murmurs, gallops, or rubs. RESPIRATORY: Breath sounds equal bilaterally. No accessory muscle use. GASTROINTESTINAL: Abdomen soft, non-tender, nondistended. MUSCULOSKELETAL: No cyanosis, or edema. BACK: Nontender without obvious deformity. No CVA tenderness. A/P Problem List: (1) Paresthesia ICD Code: R20.2 Status: Resolved (2) Hypothyroidism ICD Code: E03.9 Status: Chronic (3) Polyneuropathy ICD Code: G62.9 Status: Acute Assessment and Plan 41-year-old female with Polyneuropathy/Paresthesia-Resolved Guillain-Ol[place] and Lupus history, unlikely with any exacerbations CVA versus TIA, very unlikely - Head CT no acute intracranial disease - Cervical spine,thoracic and lumbar spine CT all negative - continue aspirin 81 mg PO daily. - Neurology consultation pending - Patient has presence of gastric pacemaker, unable to perform MRI. -PT and OT consult to treat and eval Hypothyroidism - Continue levothyroxine - TSH WNL, 1.750 DVT prophylaxis: SCDs. Likely discharge home after patient seen by Neurology, PT and OT Discharge Planning Discharge patient to home Condition on discharge: Improved Regular Diet as tolerated Ad Nichole activity Rx written:none Follow-up with primary care physician in 1 week F-U with Neurology Shravan Jane MD January 19, 2017 08:45
[2017-01-19] MEDS ORDERED: ASPIRIN EC 81 MG TABEC PO SCH (09:00)
[2017-01-19] MEDS: SODIUM CHLORIDE 0.9% FLUSH 10 ML FLUSH IV FLUSH SCH (10:41)
[2017-01-19] MEDS: ALPRAZolam 1 MG TAB PO PRN (10:41)
[2017-01-19 11:37] VITALS: BP 106/64; PULSE 60; RESP 16; TEMP 97.9; O2SAT 98
--- NOTE | 2017-01-19 12:00 | MB ---
cc: MIKE MEDLEY M.D. DATE OF CONSULTATION: 01/19/2017 HISTORY OF PRESENT ILLNESS The patient is seen in neurological consultation. She was brought to the hospital yesterday. Apparently she came from [place] to see the eye doctor when she did not feel well and developed symptoms involving her legs, left more than right. Also, admits to some tingling in the tips of the fingers and in the tongue. She is not a very good historian and there has been some apparent fluctuation of the symptoms. PAST MEDICAL HISTORY 1. History of a stroke in August 2016. 2. Lupus. 3. Arthritis. 4. Anxiety. 5. Fibromyalgia. 6. Five episodes of Guillain-Nodaway syndrome, the first apparently in September 2015 and the last in November 2016. She says she received IVIG for the episodes including the one in November of this year. She follows with a neurologist, Dr. Reinoso. IMAGING She had a CT scan of the cervical, thoracic and lumbar spine as well as head which were negative studies. It appears that she has a gastric pacemaker and is unable to have an MRI. NEUROLOGICAL EXAMINATION The exam shows the patient to be anxious but alert, oriented, a somewhat poor historian. Ocular movements and visual mandel full. Pupils equal and reactive. Disks benign. No facial weakness. Speech is normal. Neck is supple. Tongue and palate move well. She has grossly normal strength in the upper extremities. The lower extremity exam is limited as she gives away but with encouragement she was able to stand up and I assisted her along with the nurse. She marched a few steps limping with the left more than right. Reflexes were essentially absent throughout. Plantar response is flexor. Position sense preserved in the distal lower extremities. Perception to touch and pin appears to be symmetrical and grossly appropriate. ASSESSMENT 1. Lower extremity weakness, some minor associated tingling in the fingers and also in the tongue. 2. Unusual history of five episodes of Guillain-Nodaway in the past 2-1/2 years approximately, last episode in November 2016. 3. History of a stroke in August 2016. 4. Lupus. RECOMMENDATIONS Continue aspirin. She is going to be seen by physical therapy. I am not 100% convinced that she is having a flareup of polyneuropathy. Evidently this would be chronic demyelinated polyneuropathy rather than just recurrent Guillain-Nodaway syndrome. For the time-being no other neurologic intervention and if stable she will follow with her neurologist who would be able to more adequately assess her situation. If there is a clear worsening of neuropathy symptoms then will have to reconsider putting her back on intravenous immunoglobulin and even considering a spinal tap, etc. If she needs to stay in the hospital as discussed then I will follow her, otherwise she is to be followed by her neurologist, Dr. Reinoso. Thank you for asking us to evaluate this patient. Mike Medley MD OFC/BT /11:05 AM /11:45 AM
--- NOTE | 2017-01-19 15:08 | HHI.FF ---
Face to Face Verification Diagnosis: (1) Paresthesia (2) Polyneuropathy (3) Neurological symptoms Physical Therapy Order: Evaluate and Treat I have seen patient Aure Tobias on 01/19/17. My clinical findings support the need for the requested home health care services because: Ltd mobility - disease progression I certify that my clinical findings support that this patient is homebound because: Unsteady gait/balance Shravan Jane MD January 19, 2017 15:08
[2017-01-19 15:51] VITALS: BP 94/63; PULSE 60; RESP 16; TEMP 97.9; O2SAT 97
[2017-01-19] MEDS: ACETAMINOPHEN 500 MG CPLT PO PRN (16:26)
[2017-01-19 17:26] VITALS: RESP 16
== END 2017-01-19 18:56 | disposition home or self-care (01) ==
LOC: NEPC 13:48 → INTOOBSV 17:23 → NEDA 17:23 → NEPFCDU 20:47
PROVIDERS: ADMIT Hospitalist; ATTEND Hospitalist
DX: R20.2 Paresthesia of skin (principal); M54.2 Cervicalgia; R42 Dizziness and giddiness; Z86.73 Personal history of transient ischemic attack (TIA), and cerebral infarction without residual deficits; Z79.82 Long term (current) use of aspirin; E78.00 Pure hypercholesterolemia, unspecified; M79.7 Fibromyalgia; K31.84 Gastroparesis; Z79.899 Other long term (current) drug therapy; R20.0 Anesthesia of skin; G61.0 Guillain-Barre syndrome; E03.9 Hypothyroidism, unspecified; R53.1 Weakness; M32.9 Systemic lupus erythematosus, unspecified; R29.90 Unspecified symptoms and signs involving the nervous system; R94.31 Abnormal electrocardiogram [ECG] [EKG]
CPT/HCPCS: 70450; 71010; 72125; 72128; 72131; 80053; 80061; 80307; 81001; 82550; 84443; 84484; 84703; 85025; 85610; 85730; 93005; 96360; G0378; G8987-GO; G8987-GP; G8988-GP; G8989-GO; J7030